=== PATIENT | female | born 1960 | race Caucasian/White ===

== ENCOUNTER 2018-12-05 11:34 | Day surgery (SDC) | payer OTHER ==
[2018-12-04 11:38] LABS: Absolute Lymphocytes (CBC) 2.1 K/uL (0.7-4.9); Absolute Monocytes 0.4 K/uL (0.1-1.3); Absolute Neutrophil 4.7 K/uL (1.8-8.0); Basophils % 1.2 % (0-1.3); Eosinophils % 1.5 % (0-4.4); Hematocrit 40.5 % (36.0-45.0); Lymphocytes % 28.2 % (15.3-44.8); MPV 8.6 fL (7.6-11.3); Monocytes % 5.7 % (3.3-12.3); RBC Red Blood Cell Count 4.49 M/uL (3.86-4.86)
[2018-12-04 12:03] LABS: BUN Blood Urea Nitrogen 10 mg/dL (7-18); Bicarbonate 28 mmol/L (21-32); Glucose Level 132 mg/dL (74-106); Sodium Level 140 mmol/L (136-145)
--- NOTE | 2018-12-04 12:19 | RAD REPORT ---
EXAM DESCRIPTION: RAD - Chest Pa And Lat (2 Views) - 12/04/2018 12:10 pm CLINICAL HISTORY: pre op Chest pain. COMPARISON: CHEST PA AND LAT 2 VIEW dated 07/08/2012 FINDINGS: The lungs are clear. The heart is normal in size. No displaced fractures. IMPRESSION: No acute or concerning finding suspected.
--- NOTE | 2018-12-04 14:29 | EKG ---
Test Date: 2018-12-04 Test Time: 11:30:51 Biology Manager: DEEPIKA MEASUREMENT RESULTS: Intervals: Rate: 70 CA: 148 QRSD: 72 QT: 400 QTc: 432 [place]: P: 55 CA: 148 QRS: 40 T: 32 INTERPRETIVE STATEMENTS: Normal sinus rhythm Low voltage QRS Borderline ECG No previous ECG available for comparison Electronically Signed On 12-04-18 14:28:45 CDT by Sal Richmond
[2018-12-05] MEDS ORDERED: NA CHLORIDE 0.9% 1,000 ML ONE (12:08)
[2018-12-05] MEDS ORDERED: CEFAZOLIN/SWI 1gm 1 GM/10 ML SYR ONE (13:53)
[2018-12-05] MEDS ORDERED: PROPOFOL 200 MG/20 ML VIAL IV ONE (14:11)
[2018-12-05] MEDS ORDERED: FENTANYL CITR 100 MCG/2 ML ONE (14:14)
[2018-12-05] MEDS ORDERED: MIDAZOLAM HCL 2 MG/2 ML INJ ONE (14:14)
[2018-12-05] MEDS ORDERED: LIDOCAINE 2% MPF 5 ML VIAL ONE (14:14)
[2018-12-05] MEDS ORDERED: BUPIVACAINE 0.5% PF 10 ML VIAL ONE (14:23)
[2018-12-05] MEDS ORDERED: DEXAMETHASONE 4 MG/ML VIAL ONE (14:46)
[2018-12-05] MEDS ORDERED: KETOROLAC 30 MG/ML INJ ONE (14:46)
[2018-12-05] MEDS ORDERED: ONDANSETRON 4 MG/2 ML VIAL ONE (14:46)
--- NOTE | 2018-12-05 14:51 | P.BOP ---
Preoperative diagnosis: infected post neck mass Postoperative diagnosis: same Primary procedure: Excisional biopsy of infected post neck mass3.5 x3.5 cm Secondary procedure: with abscess drainage Carpet Cutter: Monica Lubin (ELECTROCARDIOGRAM TECHNICIAN) Estimated blood loss: <10cc Specimen: mass and culture Findings: as above Anesthesia: General Complications: None
[2018-12-05 18:27] VITALS: BP 123/68; TEMP 97.6; O2SAT 97
--- NOTE | 2018-12-06 03:24 | OP ---
Date of Procedure: 12/05/2018 Surgeon: Erich Rangel MD [employer] Scout: Slime Villalpando Preoperative Diagnosis: Infected posterior neck mass. Postoperative Diagnosis: Infected posterior neck mass. Procedure: Excisional biopsy of infected posterior neck mass, 3.5 x 3.5 cm with drainage of an absce ss. Specimen: Mass and culture. Anesthesia: General plus local. Indications: This is the case of a 58-year-old patient, comes to us with a tender posterior erythema tous neck mass. Patient want that excised. The benefits, alternatives, and risks of excision fully explained which include but are not limited to infection, bleeding, damage to adjacent structures, an esthesia complication, recurrence, ND, and even . She also understands if this may not relieve any symptoms, she might need more than one surgical intervention and she may require wound care. She understood, signed a consent. Description Of Procedure: The patient was brought to the operating room, placed in supine position. Anesthesia was done without complication. The patient was placed in lateral decubitus position with proper protection. The area of concern was previously marked by me and the patient in the holding r oom. So, we make a wedge incision in the area. When we carried on the incision down we immediately noticed at the end of this mass, an abscess deep in the neck area just above the mass. The mass was excised. The loculations were explored and opened. The abscess was drained. Cultures were obtained . The area was packed with wet-to-dry dressing after hemostasis and irrigation. Patient tolerated the procedure well. The patient was sent to recovery in stable condit ion. AILYN/DIA Voice ID: [id number] Report ID: [id number]
--- NOTE | 2018-12-06 05:34 | DS ---
Date of Discharge: 12/05/2018 /ROBERTL Voice ID: [id number] Report ID: [id number]
--- NOTE | 2018-12-06 05:48 | DS ---
Date of Discharge: 12/05/2018 Diagnosis: Infected posterior neck mass. Procedure: Excisional biopsy of infected posterior neck mass with drainage from an abscess. Disposition: Home. Activity: As tolerated. No heavy lifting. Followup: Follow up in my office in 1 week. Call for appointment [phone]. Wet-to-dry dressing, no rmal saline daily. She is undecided if she wants home health agency. We explained to her that the d ressing changes have to be done. She is going to decide in the next few minutes if she is going to a [facility] home health agency to help her since she has no help at home. Medications: Include Bactrim DS p.o. b.i.d. and Ultracet q.4 hours p.r.n. pain. The patient was kati ing Keflex, but on Keflex she still has pus in that area. So, we want to cross-cover her with a seco nd antibiotic. AILYN/DIA Voice ID: [id number] Report ID: [id number]
== END 2018-12-05 18:12 | disposition home or self-care (01) ==
LOC: OR 11:34
PROVIDERS: ATTEND Surgery
PROC: 0J940ZZ Drainage of Right Neck Subcutaneous Tissue and Fascia, Open Approach (ICD-10-PCS; 2018-12-05)
PROC: 0HB4XZZ Excision of Neck Skin, External Approach (ICD-10-PCS; principal; 2018-12-05 13:45)
DX: L72.0 Epidermal cyst (principal); L03.221 Cellulitis of neck; E11.9 Type 2 diabetes mellitus without complications; F17.210 Nicotine dependence, cigarettes, uncomplicated; L02.11 Cutaneous abscess of neck
CPT/HCPCS: 36415; 71046; 80048; 82962; 85025; 87070; 87075; 87205; 88304; 93005; J0690; J2250; J2405; J2704; J3010; J7030

== ENCOUNTER 2022-01-04 14:46 | Emergency (ER) | payer OTHER ==
[2022-01-04 16:01] LABS: Urine Blood Negative (Negative); Urine Glucose 1+ (Negative); Urine Protein Negative (Negative); Urine Specific Gravity >=1.030 (1.005-1.030); Urine pH 5.5 (5.0-7.0)
[2022-01-04 16:06] LABS: Absolute Lymphocytes (CBC) 3.1 K/uL (0.7-4.9); Hematocrit 39.9 % (36.0-45.0); Lymphocytes % 30.2 % (15.3-44.8); MCV 86.2 fL (80-100); MPV 8.9 fL (7.6-11.3); RBC Red Blood Cell Count 4.63 M/uL (3.86-4.86)
[2022-01-04 16:21] LABS: BUN Blood Urea Nitrogen 25 mg/dL (7-18); Bicarbonate 24 mmol/L (21-32); Glomerular Filtration Rate 71 ml/min (=/>90); Glucose Level 218 mg/dL (74-106); Potassium 3.9 mmol/L (3.5-5.1); Sodium Level 135 mmol/L (136-145)
[2022-01-04] MEDS ORDERED: NA CHLORIDE 0.9% 1,000 ML ONE (16:22)
[2022-01-04 17:27] LABS: Urine Bacteria NONE SEEN /HPF (<20); Urine RBC <5 /HPF (NONE SEEN)
--- NOTE | 2022-01-04 17:38 | EDPHYS ---
Physician Documentation [facility] Name: Joycelyn Steiner Age: 61 yrs Sex: Female : 1960 Arrival Date: 01/04/2022 Time: 14:47 Bed 20 Private MD: ED Physician Vazquez Chambers HPI: 01/04 18:59 This 61 yrs old Female presents to ER via Ambulatory with complaints of High Blood kb Sugar, InQuicker 1445. 18:59 The patient or guardian reports hyperglycemia. Onset: The symptoms/episode kb began/occurred 2 day(s) ago. Associated signs and symptoms: Pertinent positives: polydipsia, polyuria. Current symptoms: In the emergency department the patient's symptoms are unchanged from the initial presentation. The patient has not experienced similar symptoms in the past. The patient has not recently seen a physician. Pt states her sugar has been high for [address] told her to come be evaluated in the ER. Historical: - Allergies: 15:01 No Known Allergies; ap3 - Home Meds: 15:01 metformin 1,000 mg Oral TG24 1 tab 2 times per day [Active]; ap3 - PMHx: 15:01 Diabetes mellitus; ap3 - Immunization history:: Client reports receiving the 2nd dose of the Covid vaccine. - Social history:: Smoking status: Patient reports the use of cigarette tobacco products, denies chronic smoking, but will smoke occasionally. ROS: 18:58 Constitutional: Negative for fever, chills, and weight loss. kb 18:58 Endocrine: Positive for polydipsia, polyuria. 18:58 All other systems are negative. Exam: 18:58 Constitutional: This is a well developed, well nourished patient who is awake, alert, kb and in no acute distress. Head/Face: Normocephalic, atraumatic. ENT: Moist Mucous membranes Cardiovascular: Regular rate and rhythm with a normal S1 and S2. No gallops, murmurs, or rubs. No pulse deficits. Respiratory: Respirations even and unlabored. No increased work of breathing. Talking in full sentences Abdomen/GI: Soft, non-tender. No distention Skin: Warm, dry with normal turgor. Normal color. MS/ Extremity: Pulses equal, no cyanosis. Neurovascular intact. Full, normal range of motion. Neuro: Awake and alert, GCS 15, oriented to person, place, time, and situation. Moves all extremities. Normal gait. Psych: Awake, alert, with orientation to person, place and time. Behavior, mood, and affect are within normal limits. Vital Signs: 14:59 BP 153 / 83; Pulse 99; Resp 17; Temp 97.8; Pulse Ox 99% ; Weight 92.99 kg; Height 5 ft. ap3 4 in. (162.56 cm); 14:59 Body Mass Index 35.19 (92.99 kg, 162.56 cm) ap3 MDM: 14:59 Patient medically screened. kb 18:51 Data reviewed: vital signs, nurses notes. Data interpreted: Pulse oximetry: on room air kb is 99 %. Interpretation: normal. Counseling: I had a detailed discussion with the patient and/or guardian regarding: the historical points, exam findings, and any diagnostic results supporting the discharge/admit diagnosis, lab results, the need for outpatient follow up, a family practitioner, to return to the emergency department if symptoms worsen or persist or if there are any questions or concerns that arise at home. 01/04 14:59 Order name: CBC with Diff; Complete Time: 16:10 kb 01/04 14:59 Order name: Basic Metabolic Panel; Complete Time: 16:23 kb 01/04 14:59 Order name: Acetone, Serum; Complete Time: 16:23 kb 01/04 14:59 Order name: Urine Microscopic Only; Complete Time: 17:35 kb 01/04 15:09 Order name: Glucose, Ancillary Testing; Complete Time: 15:09 EDMS 01/04 16:01 Order name: Urine Dipstick-Ancillary; Complete Time: 16:07 EDMS 01/04 14:59 Order name: IV Start; Complete Time: 16:02 kb 01/04 14:59 Order name: Urine Dipstick-Ancillary (obtain specimen); Complete Time: 16:02 kb 01/04 16:03 Order name: Urine Dipstick-Ancillary EDMS Administered Medications: 16:21 Drug: NS 0.9% 1000 ml Route: IV; Rate: 1000 ml; Site: left hand; Disposition Summary: 01/04/22 17:37 Discharge Ordered Location: Home kb Condition: Stable kb Diagnosis - Hyperglycemia, unspecified kb Followup: kb - With: Emergency Department - When: As needed - Reason: Worsening of condition Followup: kb - With: Private Physician - When: 2 - 3 days - Reason: Recheck today's complaints, Continuance of care, Re-evaluation by your physician Discharge Instructions: - Discharge Summary Sheet kb - Hyperglycemia, [id number] kb Forms: - Medication Reconciliation Form kb - Thank You Letter kb - Antibiotic Education kb - Prescription Opioid Use kb Signatures: Dispatcher [employer] EDSera Jaimes, ELECTRIC SEALING MACHINE OPERATOR-C Mary Burr, RN RN ap3 Maggie Patten RN RN desai
--- NOTE | 2022-01-04 17:38 | ER ---
Nurse's Notes [facility] Name: Joycelyn Steiner Age: 61 yrs Sex: Female : 1960 Arrival Date: 01/04/2022 Time: 14:47 Bed 20 Private MD: Diagnosis: Hyperglycemia, unspecified Presentation: 01/04 14:59 Chief complaint: Patient states: she tested positive for COVID on 12/23/2021. Patient ap3 also reports getting high blood sugar readings the last two days, along with feeling fatigued. Patient has been unable to get into see her PCP, so came to the ED for further evaluation. Coronavirus screen: At this time, the client does not indicate any symptoms associated with coronavirus-19. Ebola Screen: No symptoms or risks identified at this time. Initial Sepsis Screen: Does the patient meet any 2 criteria? No. Patient's initial sepsis screen is negative. Does the patient have a suspected source of infection? No. Patient's initial sepsis screen is negative. Risk Assessment: Do you want to hurt yourself or someone else? Patient reports no desire to harm self or others. Onset of symptoms was January 03, 2022. 14:59 Method Of Arrival: Ambulatory ap3 14:59 Acuity: AMEENA 3 ap3 Triage Assessment: 15:01 General: Appears in no apparent distress. Behavior is calm, cooperative, Reports ap3 fatigue for. Pain: Denies pain. Neuro: Level of Consciousness is awake, alert, obeys commands, Oriented to person, place, time, situation, Gait is steady, Speech is normal. Cardiovascular: Patient's skin is warm and dry. Respiratory: Airway is patent Respiratory effort is even, unlabored. Historical: - Allergies: 15:01 No Known Allergies; ap3 - Home Meds: 15:01 metformin 1,000 mg Oral TG24 1 tab 2 times per day [Active]; ap3 - PMHx: 15:01 Diabetes mellitus; ap3 - Immunization history:: Client reports receiving the 2nd dose of the Covid vaccine. - Social history:: Smoking status: Patient reports the use of cigarette tobacco products, denies chronic smoking, but will smoke occasionally. Screenin:02 Abuse screen: Denies threats or abuse. Nutritional screening: No deficits noted. ap3 Tuberculosis screening: No symptoms or risk factors identified. 15:50 Fall Risk None identified. desai Assessment: 15:50 General: Appears in no apparent distress. Behavior is calm, cooperative. Pain: Denies desai pain. Neuro: Reports weakness. Cardiovascular: Reports fatigue. Vital Signs: 14:59 BP 153 / 83; Pulse 99; Resp 17; Temp 97.8; Pulse Ox 99% ; Weight 92.99 kg; Height 5 ft. ap3 4 in. (162.56 cm); 14:59 Body Mass Index 35.19 (92.99 kg, 162.56 cm) ap3 ED Course: 14:47 Patient arrived in ED. as 14:52 Sera Corado FNP-C [facility] kb 14:52 Vazquez Chambers MD is Attending Physician. kb 15:01 Triage completed. ap3 15:01 Arm band placed on right wrist. ap3 15:50 Maggie Patten, RN is Primary Nurse. desai 15:50 Bed in low position. desai 15:50 No provider procedures requiring assistance completed. desai 16:01 Inserted saline lock: 22 gauge in left hand, using aseptic technique. iw 16:13 Urine Dipstick-Ancillary Sent. desai 18:07 IV discontinued, intact, Pressure dressing applied. desai Administered Medications: 16:21 Drug: NS 0.9% 1000 ml Route: IV; Rate: 1000 ml; Site: left hand; desai Medication: 15:50 VIS not applicable for this client. desai Outcome: 17:37 Discharge ordered by . kb 18:06 Discharged to home ambulatory. desai 18:06 Condition: good 18:06 Discharge instructions given to patient. 18:07 Patient left the ED. desai Signatures: Sera Corado FNP-C FNP-Ckb Martinez, Amelia as Williams, Irene, RN RN Mary Jenkins RN RN ap3 Maggie Patten RN RN desai
[2022-01-04 18:26] VITALS: BP 153/83; TEMP 97.8; O2SAT 99
== END 2022-01-04 18:07 | disposition home or self-care (01) ==
LOC: ER 14:46
DX: E11.65 Type 2 diabetes mellitus with hyperglycemia (principal); F17.210 Nicotine dependence, cigarettes, uncomplicated
CPT/HCPCS: 85025; 80048; 36415; 82010; 82947; 99283; J7030; 81003; 81015

== ENCOUNTER 2022-12-10 15:43 | Emergency (ER) | payer OTHER ==
[2022-12-10 15:59] LABS: Absolute Lymphocytes (CBC) 2.9 K/uL (0.7-4.9); Hematocrit 36.5 % (36.0-45.0); Lymphocytes % 31.5 % (15.3-44.8); MCV 88.2 fL (80-100); MPV 8.1 fL (7.6-11.3); RBC Red Blood Cell Count 4.14 M/uL (3.86-4.86)
[2022-12-10 16:22] LABS: Albumin 3.5 g/dL (3.4-5.0); Bilirubin Total 0.6 mg/dL (0.2-1.0); Potassium 3.7 mEq/L (3.5-5.1); Protein, Total 7.4 g/dL (6.4-8.2)
--- NOTE | 2022-12-10 16:38 | RAD REPORT ---
EXAM DESCRIPTION: CT - Stone Protocol - 12/10/2022 4:24 pm CLINICAL HISTORY: Flank pain. FLANK PAIN COMPARISON: CT-STONE PROTOCOL dated 07/22/2011 TECHNIQUE: Axial images were obtained without oral or IV contrast. Lack of contrast limits solid org an and vascular assessment. The [id number] spans the entirety of the system partially obscuring uppermost abdomen and lung bases. Coronal reformatted images were obtained and reviewed. All CT scans are performed using dose optimization technique as appropriate and may include automated exposure control or mA/KV adjustment according to patient size. FINDINGS: The lower lung monk are clear. Imaged portions of the liver and spleen show no suspicious findings on non-contrast imaging. The panc reas and adrenal glands are normal. No pathologic lymphadenopathy in the abdomen or pelvis. 4 mm stone right UVJ with mild right hydronephrosis and hydroureter. Small additional stone is presen t inferior right kidney. No bowel obstruction, free air, free fluid or abscess. Normal appendix noted. Mild lumbar degenerative changes. IMPRESSION: 4 mm right UVJ stone with mild right hydronephrosis and hydroureter. Additional small right renal calculus present.
[2022-12-10] MEDS ORDERED: MAGNESIUM SULFATE 1 gm IVPB 1 GM/100 ML BAG IV ONE (16:56)
[2022-12-10] MEDS ORDERED: TAMSULOSIN 0.4 MG SR CAP ONE (16:56)
[2022-12-10] MEDS ORDERED: NA CHLORIDE 0.9% 1,000 ML ONE (17:00)
[2022-12-10 17:15] LABS: Urine Bacteria None Seen /HPF (<20); Urine Bilirubin NEGATIVE (Negative); Urine Blood 3+ (OVER) (Negative); Urine Clarity Clear (Clear); Urine Color Light-Yellow (Yellow); Urine Crystals Unidentified Few /HPF (None Seen); Urine Glucose NEGATIVE (Negative); Urine Mucus Slight /HPF (None Seen); Urine Protein NEGATIVE (Negative); Urine RBC >50 /HPF (None Seen); Urine Urobilinogen Normal (Normal); Urine WBC Clump Rare /HPF (None Seen)
--- NOTE | 2022-12-10 17:43 | EDPHYS ---
Physician Documentation [facility] Name: Joycelyn Steiner Age: 62 yrs Sex: Female : 1960 Arrival Date: 12/10/2022 Time: 15:43 Bed 2 Private MD: ED Physician Vazquez Chambers HPI: 12/10 15:48 This 62 yrs old Female presents to ER via Unassigned with complaints of flank pain. kb 15:48 The patient complains of pain in the right flank. The pain does not radiate. Onset: The kb symptoms/episode began/occurred today. Modifying factors: The symptoms are alleviated by nothing. the symptoms are aggravated by nothing. Associated signs and symptoms: Pertinent positives: dysuria, Pertinent negatives: diarrhea, dizziness, fever, urinary frequency, headache, hematuria, nausea, pain radiating to the lower extremities, vomiting. Severity of pain: At its worst the pain was moderate in the emergency department the pain is unchanged. The patient has not experienced similar symptoms in the past. The patient has not recently seen a physician. Historical: - Allergies: 15:58 No Known Allergies; ko1 - Home Meds: 15:58 Ozempic 1 mg/dose (4 mg/3 mL) subcutaneous Pen Injector 1 mg every week for type 2 ko1 diabetes mellitus [Active]; - PMHx: 15:58 Diabetes mellitus; ko1 - Immunization history:: Adult Immunizations up to date. - Social history:: Smoking status: Patient denies any tobacco usage or history of. ROS: 15:47 Constitutional: Negative for fever, chills, and weight loss. kb 15:47 : Positive for flank pain, burning with urination. 15:47 All other systems are negative. Exam: 15:47 Constitutional: This is a well developed, well nourished patient who is awake, alert, kb and in no acute distress. Head/Face: Normocephalic, atraumatic. ENT: Moist Mucous membranes Cardiovascular: Regular rate and rhythm with a normal S1 and S2. No gallops, murmurs, or rubs. No pulse deficits. Respiratory: Respirations even and unlabored. No increased work of breathing. Talking in full sentences Abdomen/GI: Soft, non-tender. No distention Back: No spinal tenderness. No costovertebral tenderness. Full range of motion. Skin: Warm, dry with normal turgor. Normal color. MS/ Extremity: Pulses equal, no cyanosis. Neurovascular intact. Full, normal range of motion. Neuro: Awake and alert, GCS 15, oriented to person, place, time, and situation. Moves all extremities. Normal gait. Vital Signs: 15:45 BP 134 / 56; Pulse 78; Resp 18; Temp 97.4; Pulse Ox 97% on R/A; ko1 15:45 BP 131 / 61; Pulse 77; Resp 18; Pulse Ox 96% ; ko1 17:29 BP 128 / 49; Pulse 76; Resp 18; Pulse Ox 100% ; ko1 17:40 BP 133 / 66; Pulse 72; Resp 16; Pulse Ox 99% ; ko1 MDM: 15:44 Patient medically screened. kb 15:47 Differential diagnosis: nephrolithiasis, pyelonephritis, UTI. Data reviewed: vital kb signs, nurses notes. Historians other than the Patient: EMS: [facility]. 17:42 Counseling: I had a detailed discussion with the patient and/or guardian regarding: the kb historical points, exam findings, and any diagnostic results supporting the discharge/admit diagnosis, lab results, radiology results, the need for outpatient follow up, a urologist, to return to the emergency department if symptoms worsen or persist or if there are any questions or concerns that arise at home. Response to treatment: the patient's symptoms have markedly improved after treatment. 12/10 15:44 Order name: CBC with Diff; Complete Time: 16:03 kb 12/10 15:44 Order name: CMP; Complete Time: 16:25 kb 12/10 15:44 Order name: Urinalysis w/ reflexes; Complete Time: 17:16 kb 12/10 15:44 Order name: CT Stone Protocol; Complete Time: 16:45 kb 12/10 15:44 Order name: IV Saline Lock; Complete Time: 15:45 kb 12/10 15:44 Order name: Labs collected and sent; Complete Time: 15:53 kb Administered Medications: 16:50 Drug: Magnesium Sulfate IVPB 1 grams Route: IVPB; Infused Over: 1 hrs; Site: left bp antecubital; 17:47 Follow up: IV Status: Completed infusion; IV Intake: 100ml ko1 16:50 Drug: Flomax PO 0.4 mg Route: PO; bp 17:46 Follow up: Response: No adverse reaction ko1 16:50 Drug: NS 0.9% IV 1000 ml Route: IV; Rate: 1000 ml; Site: left antecubital; bp 17:46 Follow up: IV Status: Completed infusion; IV Intake: 500ml ko1 Disposition Summary: 12/10/22 17:42 Discharge Ordered Location: Home kb Condition: Stable kb Diagnosis - Calculus of ureter kb Followup: kb - With: Emergency Department - When: As needed - Reason: Worsening of condition Followup: kb - With: Private Physician - When: 2 - 3 days - Reason: Recheck today's complaints, Continuance of care, Re-evaluation by your physician Followup: kb - With: Bruce Holland MD - When: 2 - 3 days - Reason: Recheck today's complaints Discharge Instructions: - Discharge Summary Sheet kb - Kidney Stones, [id number]-[id number] kb - Dietary Guidelines to Help Prevent Kidney Stones kb Forms: - Medication Reconciliation Form kb - Thank You Letter kb - Antibiotic Education kb - Prescription Opioid Use kb Prescriptions: - Zofran 4 mg Oral Tablet - take 1 tablet by ORAL route every 6 hours As needed; 20 tablet; Refills: 0, kb Product Selection Permitted - Diclofenac Sodium 75 mg Oral tablet,delayed release (DR/EC) - take 1 tablet by ORAL route 2 times per day As needed; 30 tablet; Refills: 0, kb Product Selection Permitted - Tramadol 50 mg Oral Tablet - take 1 tablet by ORAL route every 8 hours as needed; 12 tablet; Refills: 0, kb Product Selection Permitted Signatures: Dispatcher [employer] Sera Duff, CHIEF TECHNOLOGY OFFICER-C CHIEF TECHNOLOGY OFFICER-Dao Castro RN RN Rosaura Lares, VAMSI RN ko1 Corrections: (The following items were deleted from the chart) 16:00 15:58 PMHx: diabetes mellitus; ko1 ko1
--- NOTE | 2022-12-10 17:43 | ER ---
Nurse's Notes [facility] Name: Joycelyn Steiner Age: 62 yrs Sex: Female : 1960 Arrival Date: 12/10/2022 Time: 15:43 Bed 2 Private MD: Diagnosis: Calculus of ureter Presentation: 12/10 15:45 Chief complaint: EMS states: patient called [place], she was trying ko1 to drive herself here but became too nauseated. She complains of right flank pain and some burning with urination. Coronavirus screen: At this time, the client does not indicate any symptoms associated with coronavirus-19. Ebola Screen: No symptoms or risks identified at this time. Initial Sepsis Screen: Does the patient meet any 2 criteria? No. Patient's initial sepsis screen is negative. Does the patient have a suspected source of infection? No. Patient's initial sepsis screen is negative. Risk Assessment: Do you want to hurt yourself or someone else? Patient reports no desire to harm self or others. Onset of symptoms was December 10, 2022. 15:45 Method Of Arrival: EMS: [facility] ko1 15:45 Acuity: AMEENA 3 ko1 Triage Assessment: 15:58 General: Appears in no apparent distress. comfortable, Behavior is calm, cooperative, ko1 appropriate for age. Pain: Complains of pain in right flank. Historical: - Allergies: 15:58 No Known Allergies; ko1 - Home Meds: 15:58 Ozempic 1 mg/dose (4 mg/3 mL) subcutaneous Pen Injector 1 mg every week for type 2 ko1 diabetes mellitus [Active]; - PMHx: 15:58 Diabetes mellitus; ko1 - Immunization history:: Adult Immunizations up to date. - Social history:: Smoking status: Patient denies any tobacco usage or history of. Screenin:45 [facility] ED Fall Risk Assessment (Adult) History of falling in the last 3 months, ko1 including since admission No falls in past 3 months (0 pts) Confusion or Disorientation No (0 pts) Intoxicated or Sedated No (0 pts) Impaired Gait No (0 pts) Mobility Assist Device Used No (0 pt) Altered Elimination No (0 pt) Score/Fall Risk Level 0 - 2 = Low Risk Oriented to surroundings, Maintained a safe environment, Educated pt \T\ family on fall prevention, incl call for assistance when getting out of bed, Assessed \T\ reinforced patient's understanding of fall precautions, Provided non-skid footwear, Hourly rounding (assess needs \T\ fall precautionary measures) done, Used ambulatory aids as needed (educated on \T\ assisted with), Used gait belt as appropriate. Abuse screen: Denies threats or abuse. Denies injuries from another. Nutritional screening: No deficits noted. Tuberculosis screening: No symptoms or risk factors identified. Assessment: 15:45 Reassessment: see triage assessment. General: Appears in no apparent distress. ko1 comfortable, Behavior is calm, cooperative, appropriate for age. Vital Signs: 15:45 BP 134 / 56; Pulse 78; Resp 18; Temp 97.4; Pulse Ox 97% on R/A; ko1 15:45 BP 131 / 61; Pulse 77; Resp 18; Pulse Ox 96% ; ko1 17:29 BP 128 / 49; Pulse 76; Resp 18; Pulse Ox 100% ; ko1 17:40 BP 133 / 66; Pulse 72; Resp 16; Pulse Ox 99% ; ko1 ED Course: 15:44 Patient arrived in ED. kb 15:44 Sera Corado FNP-C [facility] kb 15:44 Vazquez Chambers MD is Attending Physician. kb 15:44 Rosaura Breen, VAMSI is Primary Nurse. ko1 15:45 Maintain EMS IV. Dressing intact. Good blood return noted. Site clean \T\ dry. Gauge \T\ ko 1 site: 22g right hand. IV is patent, is intact, Flushed right hand with 5 ml normal saline. 15:45 Patient has correct armband on for positive identification. Bed in low position. Call ko1 light in reach. Side rails up X 1. Pulse ox on. NIBP on. Door closed. Noise minimized. Warm blanket given. 15:53 CBC with Diff Sent. ko1 15:54 CMP Sent. ko1 15:58 Triage completed. ko1 15:58 Arm band placed on left wrist. Patient placed in an exam room, on a stretcher, on ko1 cardiac cath tech, on pulse oximetry. 16:26 CT Stone Protocol In Process Unspecified. EDMS 17:40 No provider procedures requiring assistance completed. ko1 17:41 IV discontinued, intact, bleeding controlled, No redness/swelling at site. Pressure ko1 dressing applied. 17:43 Bruce Holland MD is Referral Physician. kb Administered Medications: 16:50 Drug: Magnesium Sulfate IVPB 1 grams Route: IVPB; Infused Over: 1 hrs; Site: left bp antecubital; 17:47 Follow up: IV Status: Completed infusion; IV Intake: 100ml ko1 16:50 Drug: Flomax PO 0.4 mg Route: PO; bp 17:46 Follow up: Response: No adverse reaction ko1 16:50 Drug: NS 0.9% IV 1000 ml Route: IV; Rate: 1000 ml; Site: left antecubital; bp 17:46 Follow up: IV Status: Completed infusion; IV Intake: 500ml ko1 Medication: 17:29 VIS not applicable for this client. ko1 Intake: 17:46 IV: 500ml; Total: 500ml. ko1 17:47 IV: 100ml; Total: 600ml. ko1 Outcome: 17:42 Discharge ordered by . veronique 17:47 Discharged to home ambulatory, with family. ko1 17:47 Condition: improved 17:47 Discharge instructions given to patient, Instructed on discharge instructions, follow up and referral plans. medication usage, Demonstrated understanding of instructions, follow-up care, medications, Prescriptions given X 3. 17:56 Patient left the ED. ko1 Signatures: Dispatcher [employer] EDSera Jaimes, PIPELINES LABORER-C PIPELINES LABORER-Dao Castro, RN RN bp Rosaura Breen RN RN ko1 Corrections: (The following items were deleted from the chart) 16:00 15:58 PMHx: diabetes mellitus; ko1 ko1
[2022-12-10 18:06] VITALS: BP 133/66; TEMP 97.4; O2SAT 99
== END 2022-12-10 17:56 | disposition home or self-care (01) ==
LOC: ER 15:43
DX: N20.1 Calculus of ureter (principal); E11.9 Type 2 diabetes mellitus without complications
CPT/HCPCS: 96365; 85025; 81001; 36415; 80053; 76377; 74176; 99284; J3475; J7030